=== PATIENT | female | born 1975 | race Caucasian/White ===

== ENCOUNTER → 2016-12-12 | Outpatient (CLI) | payer BC ==
[2016-12-12 10:02] LABS: ALT 47 U/L (9-52); AST 28 U/L (14-36); Alkaline Phosphatase 64 U/L (38-126); Anion Gap 12 mmol/L; Blood Urea Nitrogen 14 mg/dL (7-17); Calcium 9.8 mg/dL (8.4-10.2); Carbon Dioxide 26 mmol/L (22-30); Chloride 103 mmol/L (98-107); Cholesterol 230 mg/dL (<200); Glucose 87 mg/dL (74-99); HDL Cholesterol 62 mg/dL (40-60); Non-African American GFR(MDRD) >60 (>60 ml/min/1.73 sqM); Potassium 4.5 mmol/L (3.5-5.1); Sodium 141 mmol/L (137-145); Total Bilirubin 0.8 mg/dL (0.2-1.3); Triglycerides 131 mg/dL (<150)
== END | disposition home or self-care (01) ==
LOC: LABWHC1 09:21
PROVIDERS: ATTEND Internal Medicine Interventional Cardiology
DX: E78.5 Hyperlipidemia, unspecified (principal)
CPT/HCPCS: 36415; 80053; 80061; 84443

== ENCOUNTER → 2017-02-06 | Outpatient (CLI) | payer BC ==
--- NOTE | 2017-02-10 11:06 | MM ---
Reason for exam: screening (asymptomatic). Baseline mammogram. History: Patient had first child at age 39. Family history of breast cancer in mother at age 50. Took hormonal contraceptives for 7 years beginning at age 19. Physical Findings: Nurse did not find any significant physical abnormalities on exam. MG 3D Screening Mammo W/Cad Bilateral CC and MLO view(s) were taken. There are scattered fibroglandular densities. Finding: No suspicious calcifications or masses. These results were verbally communicated with the patient and result sheet given to the patient on 02/06/17. ASSESSMENT: Negative, BI-RAD 1 RECOMMENDATION: Routine screening mammogram of both breasts in 1 year.
== END ==
LOC: RADMAMWWP 14:25
PROVIDERS: ATTEND Obstetrics & Gynecology
DX: Z12.31 Encounter for screening mammogram for malignant neoplasm of breast (principal); Z80.3 Family history of malignant neoplasm of breast
CPT/HCPCS: 77063; G0202

== ENCOUNTER → 2017-12-30 | Outpatient (CLI) | payer BC ==
--- NOTE | 2017-12-30 12:20 | US ---
EXAMINATION TYPE: US thyroid st tissue head/neck DATE OF EXAM: 12/30/2017 COMPARISON: 11/29/2015 CLINICAL HISTORY: 42-year-old female E04.2 MULTINODULAR GOITER. TECHNIQUE: Multiple sonographic images of the thyroid gland are obtained. FINDINGS: GLAND SIZE: Right Lobe: 4.8 x 1.8 x 1.4 cm Left Lobe: 3.8 x 1.3 x 1.3 cm Isthmus Thickness: 0.2 cm NODULES RIGHT: # of nodules measured on right: 2 1. 0.7 X 0.5 x 0.5 cm lobulated, mildly complex cystic nodule at the mid pole. This nodule is wider than tall and shows no intranodular vascularity. Prior size: 0.6 x 0.5 x 0.6 cm 2. 1.2 X 1.0 x 1.0 cm hypoechoic solid nodule at the lower pole with irregular margins; . This nodu le is wider than tall and shows intranodular vascularity. Prior size: 1.1 x 0.8 x 1.0 cm LEFT: # of nodules measured on left: 0 ISTHMUS: # of nodules measured in the isthmus: 0 Bilateral neck scanned, no evidence of lymphadenopathy. IMPRESSION: 1.2 cm solid nodule left lower pole is stable to minimally larger by a millimeter or two in a couple dimensions. If FNA is not performed, this can continue to be followed.
== END | disposition home or self-care (01) ==
LOC: RADUSWWP 09:42
PROVIDERS: ATTEND Internal Medicine Endocrinology, Diabetes & Metabolism
DX: E04.1 Nontoxic single thyroid nodule (principal); E03.8 Other specified hypothyroidism
CPT/HCPCS: 76536; 84443

== ENCOUNTER → 2019-06-14 | Outpatient (CLI) | payer BC ==
--- NOTE | 2019-06-15 13:24 | MM ---
Reason for exam: screening (asymptomatic). Last mammogram was performed 2 years and 4 months ago. History: Patient had first child at age 39. Family history of breast cancer in mother at age 50. Took hormonal contraceptives for 7 years beginning at age 19. Physical Findings: A clinical breast exam by your physician is recommended on an annual basis and results should be correlated with mammographic findings. MG 3D Screening Mammo W/Cad Bilateral CC and MLO view(s) were taken. Prior study comparison: February 06, 2017, bilateral MG 3d screening mammo w/cad. There are scattered fibroglandular densities. No significant changes when compared with prior studies. ASSESSMENT: Negative, BI-RAD 1 RECOMMENDATION: Routine screening mammogram of both breasts in 1 year.
== END | disposition home or self-care (01) ==
LOC: RADMAMWWP 11:33
PROVIDERS: ATTEND Obstetrics & Gynecology
DX: Z12.31 Encounter for screening mammogram for malignant neoplasm of breast (principal); Z80.3 Family history of malignant neoplasm of breast
CPT/HCPCS: 77063; 77067

== ENCOUNTER → 2020-12-29 | Outpatient (CLI) | payer BC ==
--- NOTE | 2020-12-29 22:21 | MR ---
EXAMINATION TYPE: MR knee RT wo con DATE OF EXAM: 12/29/2020 COMPARISON: Plain film 12/19/2020 HISTORY: Right knee pain/swelling, hx surgery TECHNIQUE: Multiplanar, multisequence imaging of the right knee is performed without IV contrast. FINDINGS: MEDIAL MENISCUS: Anterior and posterior horns are intact without tear. LATERAL MENISCUS: Anterior and posterior horns are intact without tear. CRUCIATE LIGAMENTS: The anterior and posterior cruciate ligaments are intact and unremarkable. COLLATERAL LIGAMENTS: The medial collateral ligament and lateral collateral ligament complex are inta ct and popliteus tendon shows some abnormal increased intrinsic signal, coronal image 21 suggesting p ossible partial tear or strain. EXTENSOR MECHANISM: Visualized quadriceps and patellar tendons are intact. EFFUSION: Suprapatellar joint effusion is present POPLITEAL CYST: Minimal semimembranosus gastrocnemius cyst fluid is noted TRICOMPARTMENT SPACES: Joint space loss in the medial compartment CARTILAGE: There is grade 2 to grade III chondromalacia in the medial compartment, lateral compartmen t and posterior patella BONE MARROW SIGNAL: No focal abnormal marrow signal is appreciated. OTHER: Subcutaneous edema changes present in the prepatellar location anterior to the patellar tendo n IMPRESSION: Osteoarthritis
== END ==
LOC: RADMRIMAIN 19:21
PROVIDERS: ATTEND Orthopaedic Surgery
DX: M17.11 Unilateral primary osteoarthritis, right knee (principal)

== ENCOUNTER → 2021-09-24 | Outpatient (CLI) | payer BC ==
--- NOTE | 2021-09-25 07:39 | MR ---
EXAMINATION TYPE: MR knee LT wo con DATE OF EXAM: 09/24/2021 COMPARISON: Bilateral knee x-rays August 31, 2021. HISTORY: Left inner knee pain, painful kneecap, and swelling for 1 year TECHNIQUE: Multiplanar, multisequence imaging of the left knee is performed without IV contrast. FINDINGS: MEDIAL MENISCUS: Anterior and posterior horns are intact without tear. LATERAL MENISCUS: Anterior and posterior horns are intact without tear. CRUCIATE LIGAMENTS: The posterior cruciate ligament is intact and unremarkable. Complete tear from th e proximal pole of the anterior cruciate ligament with detached distal fibers identified COLLATERAL LIGAMENTS: The medial collateral ligament and lateral collateral ligament complex are inta ct and unremarkable. EXTENSOR MECHANISM: Visualized quadriceps and patellar tendons are intact. EFFUSION: No significant suprapatellar joint effusion. POPLITEAL CYST: No popliteal/kulkarni cyst. TRICOMPARTMENT SPACES: Mild to moderate tricompartment joint space loss. No significant spurring. CARTILAGE: Some fissuring and mild cartilaginous loss medial tibiofemoral compartment. No significant chondromalacia patella. BONE MARROW SIGNAL: No focal abnormal marrow signal is appreciated. OTHER: No additional significant abnormality is appreciated. IMPRESSION: Complete ACL tear suspected chronic in age as there is no additional meniscal or ligament ous tear or suspicious osseous edema. Background mild to borderline moderate tricompartment degenerat siria changes greatest medial tibiofemoral compartment presumed product of osteoarthritis.
== END | disposition home or self-care (01) ==
LOC: RADMRIMAIN 19:26
PROVIDERS: ATTEND Orthopaedic Surgery
DX: S83.512A Sprain of anterior cruciate ligament of left knee, initial encounter (principal); M17.12 Unilateral primary osteoarthritis, left knee

== ENCOUNTER → 2021-10-09 | Outpatient (CLI) | payer BC ==
--- NOTE | 2021-10-11 11:48 | MM ---
Reason for exam: screening (asymptomatic). Last mammogram was performed 2 years and 4 months ago. History: Patient had first child at age 39. Family history of breast cancer in mother at age 50. Took hormonal contraceptives for 7 years beginning at age 19. Physical Findings: A clinical breast exam by your physician is recommended on an annual basis and results should be correlated with mammographic findings. MG 3D Screening Mammo W/Cad Bilateral CC and MLO view(s) were taken. Prior study comparison: June 14, 2019, bilateral MG 3d screening mammo w/cad. February 06, 2017, bilateral MG 3d screening mammo w/cad. There are scattered fibroglandular densities. There are benign appearing round calcifications bilaterally. There is no discrete abnormality. ASSESSMENT: Negative, BI-RAD 1 RECOMMENDATION: Routine screening mammogram of both breasts in 1 year.
== END | disposition home or self-care (01) ==
LOC: RADMAMWWP 07:06
PROVIDERS: ATTEND Surgery
DX: Z13.1 Encounter for screening for diabetes mellitus (principal); Z80.3 Family history of malignant neoplasm of breast
CPT/HCPCS: 77063; 77067

== ENCOUNTER 2021-10-11 12:00 | Day surgery (SDC) | payer BC ==
[2021-10-10 16:05] VITALS: BMI 31.1
--- NOTE | 2021-10-10 20:32 | HP ---
HISTORY AND PHYSICAL REASON FOR ADMISSION: Surgery 10/11/2021 HISTORY OF PRESENT ILLNESS: Lizette Holguin is a 46-year-old patient seen with progressive right knee pain. We discussed options for treatment. She elected to proceed with right knee arthroscopy. Consent obtained. PAST MEDICAL HISTORY: Hypertension, hypothyroidism. PAST SURGICAL HISTORY: Knee arthroscopy. DAILY MEDICATIONS: Losartan, Synthroid. ALLERGIES: None. SOCIAL HISTORY: She denies tobacco use. PHYSICAL EVALUATION OF THE RIGHT KNEE: Range of motion zero to 130. Mild effusion. Tenderness medial joint line. Positive medial Cem's. Ligaments stable. Hip rotation without pain. Distal neurovascular exam intact. RADIOGRAPHS: Radiographs of the right knee revealed mild osteoarthritis. MRI of the right knee revealed osteoarthritic changes. IMPRESSION: 1. Internal derangement of right knee with meniscal tear versus osteochondral tear. 2. Hypertension. 3. Hypothyroidism. PLAN: Right knee arthroscopy with chondroplasty, possible partial meniscectomy and debridement. Surgery 10/11/2021. MMODL / IJN: [id number] /
[~2021-10-11 12:00] MED LIST: DEXAMETHASONE SOD PHOSPHATE 4 MG/ML 1 ML VIAL IV ONE; HYDROmorphone 0.5 MG/0.5 ML SYRINGE IVP PRN; LACTATED RINGERS 1,000 ML IV SCH; LIDOCAINE 1% (10MG/ML) FOR IV START INTRADERMA PRN; MIDAZOLAM 2 MG/2 ML VIAL IV PRN; ONDANSETRON 4 MG/2 ML VIAL IVP ONE
[2021-10-11] MEDS ORDERED: BUPIVACAINE (PF) 0.25% 30 ML VIAL SQ ONE ×2 (14:44→15:17)
[2021-10-11] MEDS ORDERED: .fentaNYL (PF) 50 MCG/ML 2 ML AMP ONE (14:45)
[2021-10-11] MEDS ORDERED: MIDAZOLAM 2 MG/2 ML VIAL ONE (14:45)
[2021-10-11] MEDS ORDERED: LIDOCAINE 1% INJ 10MG/ML (20 ML MDV) ONE (14:45)
[2021-10-11] MEDS ORDERED: SUCCINYLCHOLINE CHLORIDE 100 MG/5 ML SYR IV ONE (14:45)
[2021-10-11] MEDS ORDERED: PROPOFOL 10 MG/ML 20 ML VIAL IV ONE (14:45)
[2021-10-11 15:27] VITALS: TEMP 97
--- NOTE | 2021-10-11 15:29 | P.OP ---
Date of Procedure: 10/11/21 Preoperative Diagnosis: Internal derangement right knee Postoperative Diagnosis: 1. Tear medial meniscus right knee 2. Grade 2 chondromalacia medial femoral condyle right knee 3. Grade 2 chondromalacia patella right knee 4. Reactive synovitis medial, lateral and suprapatellar compartments right knee Procedure(s) Performed: 1. Arthroscopic partial medial meniscectomy right knee 2. Arthroscopic chondroplasty medial femoral condyle right knee 3. Arthroscopic chondroplasty patella right knee 4. Arthroscopic partial synovectomy medial, lateral and suprapatellar compartments right knee Anesthesia: JACEYA, local Surgeon: Gold Avilez Estimated Blood Loss (ml): 7 Pathology: none sent Condition: stable Disposition: PACU Indications for Procedure: 46-year-old patient seen with progressive right knee pain. After having treatment options discussed, she elected to proceed with right knee arthroscopy. Operative Findings: see description of procedure Description of Procedure: Patient was taken to the operative suite. Patient underwent a general anesthetic by the department of anesthesia. Patient was given preoperative antibiotics. The right lower extremity was placed in a well-padded arthroscopic leg morales. The right leg was prepped and draped in the normal sterile orthopedic fashion. A lateral parapatellar and suprapatellar incision was made. Trochars were inserted. Arthroscopy was initiated. Suprapatellar pouch revealed diffuse thick reactive synovitis. The patellofemoral joint appeared to articulate congruently. There was grade 2 chondromalacia of the patella with some osteochondral tears present. The scope was guided into the medial gutter. No loose body or plica were identified. The scope was then guided into the medial compartment. A medial parapatellar incision was made. Trocar inserted followed by probe. There was a small radial tear posterior horn medial meniscus. There were grade 2 chondromalacia changes medial femoral condyle with some osteochondral flap tears present. There was thick reactive synovitis anteriorly. I performed a partial medial meniscectomy getting down to stable meniscal tissue. I performed a chondroplasty of the medial femoral condyle getting down to stable osteochondral tissue. I performed a partial synovectomy decompressing the thick reactive synovitis anteriorly. The shaver was removed. The residual meniscus was stable. The residual osteochondral surface was stable. There was good decompression of the synovitis. Scope and probe were then guided into the intercondylar notch. Cruciates were identified, probed and found to be stable. The scope and probe were then guided into lateral compartment. Lateral meniscus was probed and was found to be stable. There was no chondromalacia involving lateral compartment. There was some reactive synovitis anteriorly. I introduced a motorized shaver and performed a partial synovectomy. The shaver was removed. There was good decompression of the synovitis. The scope was in guided back into the suprapatellar compartment. I introduced a motorized shaver into the super patellar compartment. I debrided some piecemeal fragments of meniscus that I encountered. I performed a partial synovectomy. The shaver was removed. There was good decompression of the synovitis. I took one more look around the entire knee, no residual debris. Instruments were now removed from the joint. The joint was infiltrated with .25% Marcaine. Steri-Strips were applied to the portal sites. Sterile dressings were applied. The patient was placed into a RINA hose. No tourniquet was utilized. The patient was awakened, transferred to a bed and taken to recovery stable satisfactory condition.
[2021-10-11 17:01] VITALS: RESP 18
[2021-10-11 17:31] VITALS: BP 147/78; PULSE 78
== END 2021-10-11 17:46 | disposition home or self-care (01) ==
LOC: OR 12:00
PROVIDERS: ATTEND Orthopaedic Surgery
DX: M23.203 Derangement of unspecified medial meniscus due to old tear or injury, right knee (principal); M22.41 Chondromalacia patellae, right knee; M65.861 Other synovitis and tenosynovitis, right lower leg; I10 Essential (primary) hypertension; E03.9 Hypothyroidism, unspecified; Z98.890 Other specified postprocedural states; E78.5 Hyperlipidemia, unspecified; K21.9 Gastro-esophageal reflux disease without esophagitis; Z98.891 History of uterine scar from previous surgery; Z79.890 Hormone replacement therapy; Z79.899 Other long term (current) drug therapy; Z88.0 Allergy status to penicillin
CPT/HCPCS: 81025; 29881; 29876; J2250; J1100; J0690; J2405; J2001; J3010; J0330; J2704

== ENCOUNTER 2021-12-12 09:09 | Day surgery (SDC) | payer BC ==
[2021-12-10 15:47] VITALS: BMI 30.4
--- NOTE | 2021-12-11 15:28 | HP ---
HISTORY AND PHYSICAL DATE OF SURGERY: 12/12/2021 Lizette Holguin is a 46-year-old patient seen with progressive left knee pain. After treatment options were discussed with her, she elected to proceed with left knee arthroscopy. Consent was obtained. PAST MEDICAL HISTORY: Hypertension, hypothyroidism. PAST SURGICAL HISTORY: Right knee arthroscopy. DAILY MEDICATIONS: Synthroid, losartan. ALLERGIES: NONE REPORTED. SOCIAL HISTORY: She denies tobacco use. PHYSICAL EVALUATION OF THE LEFT KNEE: Range of motion zero to 130. There is a mild effusion. Tenderness along the medial and lateral joint lines. Positive medial Cem's. Positive lateral Cem's. Crepitus along the medial compartment with range of motion. Some pain with patellofemoral compression. Ligaments stable. Distal neurovascular exam is intact. Radiographs of the left knee revealed mild osteoarthritis. MRI of the left knee revealed ACL tear and osteoarthritic changes. IMPRESSION: Internal derangement of left knee with ACL tear and osteochondral tear. PLAN: Left knee arthroscopy with ACL debridement and chondroplasty. MMODL / IJN: [id number] /
[2021-12-12 09:44] VITALS: RESP 16
[2021-12-12] MEDS ORDERED: ONDANSETRON 4 MG/2 ML VIAL ONE (09:51)
[2021-12-12] MEDS ORDERED: MIDAZOLAM 2 MG/2 ML VIAL ONE (09:59)
[2021-12-12] MEDS ORDERED: PROPOFOL 10 MG/ML 20 ML VIAL IV ONE (09:59)
[2021-12-12] MEDS ORDERED: HYDROmorphone (PF) 1 MG/ML ONE (09:59)
[2021-12-12] MEDS ORDERED: SUCCINYLCHOLINE CHLORIDE 100 MG/5 ML SYR IV ONE (09:59)
[2021-12-12] MEDS ORDERED: NEOSTIGMINE 1 MG/ML 10 ML VIAL ONE (09:59)
[2021-12-12] MEDS ORDERED: LIDOCAINE 1% INJ 10MG/ML (20 ML MDV) ONE (09:59)
[2021-12-12] MEDS ORDERED: GLYCOPYRROLATE 0.2 MG/ML 2 ML VIAL ONE (09:59)
[2021-12-12] MEDS ORDERED: fentaNYL (PF) 50 MCG/ML 2 ML AMP ONE (09:59)
[2021-12-12] MEDS ORDERED: ROCURONIUM 10 MG/ML (5 ML VIAL) IV ONE (09:59)
[2021-12-12] MEDS ORDERED: LACTATED RINGERS 1,000 ML IV ONE (10:05)
[2021-12-12] MEDS ORDERED: BUPIVACAIN-EPI 0.25%-1:200,000 30 ML VIAL INTRAARTIC ONE (10:05)
[2021-12-12] MEDS ORDERED: DEXAMETHASONE SOD PHOSPHATE 4 MG/ML 1 ML VIAL IV ONE (10:06)
[2021-12-12 10:18] LABS: HCT 42.4 % (34.0-46.0); HGB 14.5 gm/dL (11.4-16.0); MCH 31.9 pg (25.0-35.0); MCHC 34.2 g/dL (31.0-37.0); MCV 93.3 fL (80.0-100.0); Mean Platelet Volume 7.5; Platelet Count 211 k/uL (150-450); RBC 4.54 m/uL (3.80-5.40); RDW 12.3 % (11.5-15.5); WBC 8.2 k/uL (3.8-10.6)
--- NOTE | 2021-12-12 10:50 | P.OP ---
Date of Procedure: 12/12/21 Preoperative Diagnosis: Internal derangement left knee Postoperative Diagnosis: 1. Tear medial meniscus left knee 2. Grade 2 chondromalacia medial femoral condyle left knee 3. Medial plica left knee 4. Reactive synovitis medial, lateral and suprapatellar compartments left knee Procedure(s) Performed: 1. Arthroscopic partial medial meniscectomy left knee 2. Arthroscopic chondroplasty medial femoral condyle left knee 3. Arthroscopic resection medial plica left knee 4. Arthroscopic partial synovectomy medial, lateral and suprapatellar compartments left knee Anesthesia: JACEYA, local Surgeon: Gold Avilez Estimated Blood Loss (ml): 6 Pathology: none sent Condition: stable Disposition: PACU Indications for Procedure: 46-year-old patient seen with progressive left knee pain. After treatment options were discussed, she elected to proceed with arthroscopy. Operative Findings: See description of procedure Description of Procedure: Patient was taken to the operative suite. Patient underwent a general anesthe tic by the department of anesthesia. Patient was given preoperative antibiotics. The left lower extremity was placed in a well-padded arthroscopic leg morales. The left leg was prepped and draped in the normal sterile orthopedic fashion. A lateral parapatellar and suprapatellar incision was made. Trochars were inserted. Arthroscopy was initiated. Suprapatellar pouch revealed diffuse thick reactive synovitis. The patellofemoral joint appeared to articulate congruently. There was mild grade 1 chondromalacia with no tears present. The scope was guided into the medial gutter. There was a medial plica which did seem to impinge along the medial femoral condyle with range of motion The scope was then guided into the medial compartment. A medial parapatellar incision was made. Trocar inserted followed by probe. And it was a radial tear involving the posterior horn medial meniscus. There were grade 2 chondromalacia changes of the medial femoral condyle with some osteochondral flap tears present. There was some thick reactive synovitis anteriorly. I performed a partial medial meniscectomy getting down to stable meniscal tissue. I performed a chondroplasty of the medial femoral condyle getting down to stable osteochondral tissue. I performed a partial synovectomy decompressing the thick reactive synovitis. Shaver was removed. The residual meniscus was stable. The residual osteochondral surface was stable. There was good decompression of the synovitis. Scope and probe were then guided into the intercondylar notch. Cruciates were identified, probed and found to be stable. The scope and probe were then guided into lateral compartment. Lateral meniscus was probed and found to be stable. There were grade 1/2 chondromalacia changes along the lateral tibial plateau at its medial aspect with no significant osteochondral tear present. There was some thick reactive synovitis anteriorly. I introduced a motorized shaver and performed a partial synovectomy. Shaver was now removed. There was good decompression of the synovitis. The scope was in guided back into the suprapatellar compartment. I introduced a motorized shaver into the super patellar compartment. I resected that medial plica. I performed a partial synovectomy. Shaver was removed. There was complete resection of the plica and now with range of motion there was no impingement of the medial femoral condyle. There was good decompression of synovitis. I now took one more look around the entire knee, no residual debris. Instruments were now removed from the joint. The joint was infiltrated with .25% Marcaine. Steri- Strips were applied to the portal sites. Sterile dressings were applied. The patient was placed into a RINA hose. No tourniquet was utilized. The patient was awakened, transferred to a bed and taken to recovery stable satisfactory condition.
[2021-12-12 10:56] VITALS: TEMP 97
[2021-12-12 11:54] VITALS: BP 145/93; PULSE 78
== END 2021-12-12 12:21 | disposition home or self-care (01) ==
LOC: OR 09:09
PROVIDERS: ATTEND Orthopaedic Surgery
DX: S83.242A Other tear of medial meniscus, current injury, left knee, initial encounter (principal); M94.262 Chondromalacia, left knee; M65.862 Other synovitis and tenosynovitis, left lower leg
CPT/HCPCS: 29881; 29882; 81025; 85027; J2250; J1100; J2710; J0690; J2405; J2001; J3010; J1170; J0330; J2704

== ENCOUNTER → 2022-04-15 | Outpatient (CLI) | payer BC ==
--- NOTE | 2022-04-15 20:51 | FL ---
EXAMINATION TYPE: FL barium swallow DATE OF EXAM: 04/15/2022 COMPARISON: None HISTORY: Dysphasia TECHNIQUE: Double air contrast technique was utilized to evaluate the esophagus. FINDINGS: Fluoroscopy time: 26 seconds. Images: 104 Esophagus dilates to normal caliber has a normal contour to the gastroesophageal junction. Gastroesop hageal junction opens to normal caliber. Several secondary and tertiary contractions were evident dur ing the examination. There is complete stripping esophageal bolus in the horizontal drinking position . IMPRESSION: 1. Presbyesophagus.
== END | disposition home or self-care (01) ==
LOC: RADUSWWP 08:47
PROVIDERS: ATTEND Family Medicine
DX: K22.89 Other specified disease of esophagus (principal)
CPT/HCPCS: 74220

== ENCOUNTER 2022-05-14 08:10 | Day surgery (SDC) | payer BC ==
[2022-05-13 11:59] VITALS: BMI 31.3
[~2022-05-14 08:10] MED LIST changes: -DEXAMETHASONE SOD PHOSPHATE 4 MG/ML 1 ML VIAL IV ONE; -HYDROmorphone 0.5 MG/0.5 ML SYRINGE IVP PRN; -LIDOCAINE 1% (10MG/ML) FOR IV START INTRADERMA PRN; -MIDAZOLAM 2 MG/2 ML VIAL IV PRN; -ONDANSETRON 4 MG/2 ML VIAL IVP ONE
[2022-05-14 08:47] VITALS: TEMP 97
[2022-05-14] MEDS ORDERED: LIDOCAINE 2% INJ 20 MG/ML (2 ML VIAL) ONE (09:06)
[2022-05-14] MEDS ORDERED: PROPOFOL 10 MG/ML 20 ML VIAL IV ONE (09:06)
--- NOTE | 2022-05-14 09:21 | P.PCN ---
Date of Procedure: 05/14/22 Procedure(s) Performed: BRIEF HISTORY: Patient is a 46-year-old, pleasant, white female scheduled for an upper endoscopy as part of evaluation of globus sensation her throat area and heartburn of several months duration. PROCEDURE PERFORMED: Esophagogastroduodenoscopy with biopsy. PREOPERATIVE DIAGNOSIS: .Globus pharyngeus and heartburn IV sedation per anesthesia. PROCEDURE: After informed consent was obtained, the patient was brought into the endoscopy unit. IV sedation was administered by Anesthesia under continuous monitoring. Initially the Olympus GIF-140 video endoscope was inserted into the mouth. Esophagus intubated without any difficulty. It was gradually advanced into the stomach and duodenum and carefully examined. The bulb and the second part of the duodenum appeared normal. The scope at this time was withdrawn to the stomach, adequately insufflated with air, and upon careful examination, mucosa of the antrum, had mild antral gastritis and biopsies were done from this area. The body, cardia and the fundus appeared normal. The scope was then withdrawn into the esophagus. The GE junction was located at 39 cm from the incisors. small sliding type hiatal hernia noted. In the distal esophagus there were linear erosions consistent with LA grade B reflux esophagitis. Rest of esophagus appeared normal and the patient tolerated the procedure well. Biopsies were also done from the distal esophagus. IMPRESSION: 1. Linear erosions in the distal esophagus consistent with LA grade B reflux esophagitis. 2. Small hiatal hernia. 3.mild antral gastritis RECOMMENDATIONS: The findings of this examination were discussed with the patient as well as a family. Follow with biopsy results. She was advised to start on omeprazole 20 mg daily and follow antireflux measures.
[2022-05-14 10:09] VITALS: BP 147/96; PULSE 74; RESP 16
== END 2022-05-14 10:15 | disposition home or self-care (01) ==
LOC: ORWHC2ENDO 08:10
PROVIDERS: ATTEND Internal Medicine Gastroenterology
DX: K29.50 Unspecified chronic gastritis without bleeding (principal); K44.9 Diaphragmatic hernia without obstruction or gangrene; K20.90 Esophagitis, unspecified without bleeding; I10 Essential (primary) hypertension; E78.5 Hyperlipidemia, unspecified; Z88.0 Allergy status to penicillin; E07.9 Disorder of thyroid, unspecified; Z79.890 Hormone replacement therapy; Z79.899 Other long term (current) drug therapy; Z80.6 Family history of leukemia; Z80.3 Family history of malignant neoplasm of breast; Z80.8 Family history of malignant neoplasm of other organs or systems
CPT/HCPCS: 81025; 88305; 43239; J2704; J2001

== ENCOUNTER → 2023-12-01 | Outpatient (CLI) | payer BC ==
[2023-12-02 02:33] LABS: Basophils # (A) 0.02 X 10*3/uL (0.00-0.10); Basophils % (A) 0.3 %; Eosinophils % (A) 1.4 %; HCT 42.3 % (37.2-46.3); HGB 13.8 g/dL (12.0-15.0); Lymphocytes # (A) 2.34 X 10*3/uL (0.90-5.00); Lymphocytes % (A) 32.8 %; MCH 30.8 pg (27.0-32.0); MCHC 32.6 g/dL (32.0-37.0); MCV 94.4 FL (80.0-97.0); Mean Platelet Volume 9.9 FL (9.5-12.2); Monocytes # (A) 0.41 X 10*3/uL (0.20-1.00); Monocytes % (A) 5.7 %; NRBC Per 100 WBC 0 X 10*3/uL (0.00-0.01); Neutrophils # (A) 4.26 X 10*3/uL (1.80-7.70); Neutrophils % (A) 59.7 %; Platelet Count 279 X 10*3/uL (140-440); RBC 4.48 X 10*6/uL (4.10-5.20); RDW 12.7 % (11.5-14.5); WBC 7.14 X 10*3/uL (4.50-10.00)
[2023-12-02 02:52] LABS: ALT 23 U/L (8-44); AST 19 U/L (13-35); Albumin 4.4 g/dL (3.8-4.9); Albumin/Globulin Ratio 1.76 Ratio (1.60-3.17); Alkaline Phosphatase 58 U/L (41-126); BUN/Creat Ratio 20.38 Ratio (12.00-20.00); Blood Urea Nitrogen 16.3 mg/dL (9.0-27.0); Calcium 9.4 mg/dL (8.7-10.3); Carbon Dioxide 27.6 mmol/L (21.6-31.8); Chloride 104 mmol/L (96-109); Chol/HDL Ratio 4.25 Ratio; Globulin 2.5 g/dL (1.6-3.3); Glucose 82 mg/dL (70-110); LDL Cholesterol,Calculated 134.6 mg/dL (0.0-131.0); Potassium 4.1 mmol/L (3.5-5.5); Sodium 144 mmol/L (135-145); T4, Free (Free Thyroxine) 1.27 ng/dL (0.80-1.80); Total Bilirubin 0.2 mg/dL (0.3-1.2); Total Protein 6.9 g/dL (6.2-8.2)
--- NOTE | 2023-12-02 07:57 | US ---
EXAMINATION TYPE: US thyroid st tissue head/neck DATE OF EXAM: 12/01/2023 COMPARISON: US 12/18/2022 CLINICAL INDICATION: Female, 48 years old with history of E05.90 HYPERTHYROIDISM; Patient is on synth roid. Hx nodules. GLAND SIZE: Right Lobe: 5.1 x 1.5 x 1.7 cm Overall Parenchyma: heterogenous Left Lobe: 4.2 x 1.2 x 1.4 cm Overall Parenchyma: heterogenous Isthmus Thickness: 0.29 cm NODULES RIGHT: # of nodules measured on right: 3 1. 1.2 X 0.8 x 0.8 cm, lower medial, solid or almost completely solid, hypoechoic nodule, which is as wide as it is tall, with smooth margins, without echogenic foci. Prior size: 0.9 x 0.7 x 0.7 cm 2. 1.2 X 1.0 x 0.8 cm, lower mid, solid or almost completely solid, hypoechoic nodule, which is wid er than tall, with smooth margins, without echogenic foci. Prior size: 1.2 x 0.7 cm 3. 0.9 X 0.7 x 0.6 cm, lower lateral, solid or almost completely solid, hypoechoic nodule, which is wider than tall, with smooth margins, without echogenic foci. Prior size: 0.8 x 0.9 x 0.7 cm LEFT: # of nodules measured on left: 0 ISTHMUS: # of nodules measured in the isthmus: 0 Bilateral neck scanned, no evidence of lymphadenopathy. IMPRESSION: Moderately Suspicious: FNA if ? 1.5 cm; Follow if ? 1 cm at 1, 2, 3, and 5 y 2017 ACR TI-RADS LEVEL: TR4 *Highest TI-RADS level nodule reported
== END | disposition home or self-care (01) ==
LOC: RADUSWWP 16:18
PROVIDERS: ATTEND Internal Medicine Geriatric Medicine
DX: E04.1 Nontoxic single thyroid nodule (principal); R73.9 Hyperglycemia, unspecified; E03.9 Hypothyroidism, unspecified; E78.2 Mixed hyperlipidemia; E05.90 Thyrotoxicosis, unspecified without thyrotoxic crisis or storm
CPT/HCPCS: 76536; 80053; 80061; 83036; 84439; 84443; 85025

== ENCOUNTER 2024-04-05 03:30 | Emergency (ER) | payer BC ==
[2024-04-05 03:36] VITALS: RESP 18; TEMP 98.7
[2024-04-05 03:59] LABS: Appearance,Urine Bloody (Clear); Color,Urine Red
[2024-04-05 04:03] LABS: RBC,Urine >182 /hpf (0-5); WBC,Urine >182 /hpf (0-5)
--- NOTE | 2024-04-05 04:29 | ED ---
Female Urogenital HPI - General Chief complaint: Urogenital Stated complaint: Hematuria Time Seen by Provider: 04/05/24 03:40 Source: patient Mode of arrival: ambulatory Limitations: no limitations - History of Present Illness Initial comments: 48-year-old female presents emergency department reporting hematuria. States that her symptoms came on suddenly. She is having increased frequency of urination and dysuria. She denies any fevers. No flank pain. No vaginal bleeding or discharge. No changes in her bowel habits to include diarrhea, constipation, black or bloody stools. No other alleviating, precipitating or modifying factors - Related Data Home Medications Medication Instructions Recorded Confirmed Levothyroxine Sodium [Synthroid] 50 mcg PO QAM 10/10/21 02/11/24 Valsartan/Hydrochlorothiazide 1 each PO DAILY 02/10/24 02/11/24 [Valsartan-Hctz 320-12.5 mg Tab] Previous Rx's Medication Instructions Recorded Cephalexin [Keflex] 500 mg PO BID #14 cap 04/05/24 Phenazopyridine [Pyridium] 200 mg PO TID #6 tablet 04/05/24 Allergies Allergy/AdvReac Type Severity Reaction Status Date / Time Penicillins Allergy Rash/Hives Verified 04/05/24 03:36 Review of Systems ROS Statement: Those systems with pertinent positive or pertinent negative responses have been documented in the HPI. ROS Other: All systems not noted in ROS Statement are negative. Past Medical History Past Medical History: GERD/Reflux, Hyperlipidemia, Hypertension, Thyroid Disorder Additional Past Medical History / Comment(s): FREQUENT HEARTBURN, REITERS SYNDROME History of Any Multi-Drug Resistant Organisms: None Reported Past Surgical History: Section, Orthopedic Surgery, Tonsillectomy Additional Past Surgical History / Comment(s): RT KNEE ARTHROSCOPIC X2, LEFT ARTHROSCOPIC KNEE. LT CATARACT REMOVED WITH LENS IMPLANT, COLONOSCOPY Past Anesthesia/Blood Transfusion Reactions: No Reported Reaction Past Psychological History: No Psychological Hx Reported Smoking Status: Never smoker Past Alcohol Use History: None Reported Past Drug Use History: None Reported - Past Family History Mother Family Medical History: Cancer Father Family Medical History: Cancer Brother(s) Family Medical History: Cancer General Exam Limitations: no limitations General appearance: alert, in no apparent distress Head exam: Present: atraumatic, normocephalic, normal inspection Eye exam: Present: normal appearance, PERRL, EOMI. Absent: scleral icterus, conjunctival injection, periorbital swelling ENT exam: Present: normal exam, mucous membranes moist Neck exam: Present: normal inspection. Absent: tenderness, meningismus, lymphadenopathy Respiratory exam: Present: normal lung sounds bilaterally. Absent: respiratory distress, wheezes, rales, rhonchi, stridor Cardiovascular Exam: Present: regular rate, normal rhythm, normal heart sounds. Absent: systolic murmur, diastolic murmur, rubs, gallop, clicks GI/Abdominal exam: Present: soft, normal bowel sounds. Absent: distended, tenderness, guarding, rebound, rigid Extremities exam: Present: normal inspection, full ROM, normal capillary refill. Absent: tenderness, pedal edema, joint swelling, calf tenderness Back exam: Present: normal inspection Neurological exam: Present: alert, oriented X3, CN II-XII intact Psychiatric exam: Present: normal affect, normal mood Skin exam: Present: warm, dry, intact, normal color. Absent: rash Course Vital Signs 04/05/24 04/05/24 03:35 04:42 Temperature 98.7 F Pulse Rate 91 84 Respiratory 18 18 Rate Blood Pressure 162/87 141/96 O2 Sat by Pulse 97 97 Oximetry Medical Decision Making - Medical Decision Making Was pt. sent in by a medical professional or institution ([facility], LICENSING ENGINEER, urgent care, hospital, or long term...) When possible be specific @ -No Did you speak to anyone other than the patient for history (EMS, parent, family, police, friend...)? What history was obtained from this source @ -No Did you review nursing and triage notes (agree or disagree)? Why? @ -I reviewed and agree with nursing and triage notes Were old charts reviewed (outside hosp., previous admission, EMS record, old EKG, old radiological studies, urgent care reports/EKG's, long term records)? Report findings @ -No old charts were reviewed Differential Diagnosis (chest pain, altered mental status, abdominal pain women, abdominal pain men, vaginal bleeding, weakness, fever, dyspnea, syncope, headache, dizziness, GI bleed, back pain, seizure, CVA, palpatations, mental health, musculoskeletal)? @ -Acute UTI, kidney stone, hemorrhagic cystitis EKG interpreted by me (3pts min.). @ -Not done X-rays interpreted by me (1pt min.). @ -None done CT interpreted by me (1pt min.). @ -None done U/S interpreted by me (1pt. min.). @ -None done What testing was considered but not performed or refused? (CT, X-rays, U/S, labs)? Why? @ -None What meds were considered but not given or refused? Why? @ -None Did you discuss the management of the patient with other professionals (professionals i.e. , PA, LICENSING ENGINEER, lab, RT, psych nurse, social and human services assistant, marketing technology specialist, teacher, logistics officer, employment case manager)? Give summary @ -No Was smoking cessation discussed for >3mins.? @ -No Was critical care preformed (if so, how long)? @ -No Were there social determinants of health that impacted care today? How? (Homelessness, low income, unemployed, alcoholism, drug addiction, transportation, low edu. Level, literacy, decrease access to med. care, usp, rehab)? @ -No Was there de-escalation of care discussed even if they declined (Discuss DNR or withdrawal of care, Hospice)? DNR status @ -No What co-morbidities impacted this encounter? (DM, HTN, Smoking, COPD, CAD, Cancer, CVA, ARF, Chemo, Hep., AIDS, mental health diagnosis, sleep apnea, morbid obesity)? @ -None Was patient admitted / discharged? Hospital course, mention meds given and route, prescriptions, significant lab abnormalities, going to OR and other pertinent info. @ -Upon arrival patient seen and evaluated in room 30. Thorough history and physical exam was performed. Patient does provide urine sample which demonstrates infection. Patient was placed on antibiotics. She will be discharged home and instructed to follow-up with her primary care doctor to ensure that the infection has cleared. Return for any new or worsening symptoms. Patient agreeable to plan was discharged in stable condition Undiagnosed new problem with uncertain prognosis? @ -No Drug Therapy requiring intensive monitoring for toxicity (Heparin, Nitro, Insulin, Cardizem)? @ -No Were any procedures done? @ -No Diagnosis/symptom? @ -Acute hematuria, acute UTI Acute, or Chronic, or Acute on Chronic? @Acute Uncomplicated (without systemic symptoms) or Complicated (systemic symptoms)? @ -Complicated Side effects of treatment? @ -No Exacerbation, Progression, or Severe Exacerbation? @ -No Poses a threat to life or bodily function? How? (Chest pain, USA, CT, pneumonia, PE, COPD, DKA, ARF, appy, cholecystitis, CVA, Diverticulitis, Homicidal, Suicidal, threat to staff... and all critical care pts) @ -No - Lab Data Lab Results 04/05/24 Range/Units 03:48 Urine Color Red Urine Appearance Bloody H (Clear) Urine RBC >182 H (0-5) /hpf Urine WBC >182 H (0-5) /hpf Disposition Clinical Impression: Urinary tract infection, Hematuria Disposition: HOME SELF-CARE Condition: Stable Instructions (If sedation given, give patient instructions): Urinary Tract Infection in Women (ED) Additional Instructions: Please take the medications as directed. Follow-up with your doctor to ensure that the infection has cleared. Prescriptions: Cephalexin [Keflex] 500 mg PO BID #14 cap Phenazopyridine [Pyridium] 200 mg PO TID #6 tablet Is patient prescribed a controlled substance at d/c from ED?: No Referrals: Magno Reddy MD [Primary Care Provider] - 1-2 days Time of Disposition: 04:29
[2024-04-05] MEDS: CEPHALEXIN 500 MG CAP PO STA (04:37)
[2024-04-05] MEDS: PHENAZOPYRIDINE 200 MG TAB PO STA (04:38)
[2024-04-05 04:43] VITALS: BP 141/96; PULSE 84
== END 2024-04-05 04:42 | disposition home or self-care (01) ==
LOC: EC 03:30
DX: N39.0 Urinary tract infection, site not specified (principal); Z88.0 Allergy status to penicillin
CPT/HCPCS: 81001; 87077; 87086; 87186; 99283